=== PATIENT | male | born 1960 | race Caucasian/White ===

== ENCOUNTER 2019-04-02 09:42 | Emergency (ER) | payer MEDICAID, OTHER ==
[~2019-04-02] VITALS: Ht 172.7 cm; Wt 88.0 kg
[~2019-04-02 09:42] MED LIST: DOCU-144 PO; HYDR25SU23 PR; MAGN454C7 MC
[2019-04-02 09:45] VITALS: BP 128/83; PULSE 64; RESP 18; Ht 172.7 cm; Wt 88.0 kg
== END 2019-04-02 11:48 | disposition home or self-care (01) ==
LOC: FTE 09:42
DX: K64.9 Unspecified hemorrhoids (principal)
CPT/HCPCS: 99284